=== PATIENT | female | born 1990 | race African-American/Black ===

== ENCOUNTER 2017-05-26 14:24 | Emergency (ER) | payer MEDICAID, OTHER ==
[~2017-05-26] VITALS: Ht 160 cm; Wt 118.0 kg
[~2017-05-26 14:24] MED LIST: PREN-88
[2017-05-26] MEDS ORDERED: METHYLPREDNISOLONE SOD SUCC 125 MG/2 ML VIAL IV STA (18:08)
[2017-05-26] MEDS ORDERED: AZITHROMYCIN 500 MG TABLET PO ONE (18:15)
[2017-05-26] MEDS ORDERED: IPRATROPIUM/ALBUTEROL 0.5-3(2.5)MG/3ML NEB HHN ONE (18:15)
[2017-05-26] MEDS ORDERED: IBUPROFEN 800MG TABLET PO ONE (18:15)
[2017-05-26 19:07] LABS: EOSINOPHILS % 1.7 % (0.0-5.0); LYMPHOCYTES % 31.1 % (20.0-50.0); MEAN CORPUSCULAR HEMOGLOBIN 20.9 pg (28.0-32.0); MEAN CORPUSCULAR VOLUME 66.2 fL (81.0-99.0); MEAN PLATELET VOLUME 8.7 fl (7.4-10.4); MONOCYTES % 7.6 % (2.0-8.0); NEUTROPHILS % 58.6 % (40.0-76.0); PLATELET 331 x1000/uL (130-400); RED BLOOD CELL COUNT 5.28 mill/uL (4.2-5.4); RED CELL DISTRIBUTION WIDTH 15.9 % (11.6-14.6)
[2017-05-26 19:11] LABS: CHLORIDE 105 mEq/L (98-107)
[2017-05-26 19:17] LABS: CARBON DIOXIDE 27 mEq/L (21-32)
[2017-05-26 19:19] LABS: HCG SCREEN NEGATIVE
[2017-05-26 19:20] LABS: D-DIMER 0.44 mg/L FEU (<0.50); PARTIAL THROMBOPLASTIN TIME 28.9 sec (23.4-31.0); PROTHROMBIN TIME 10.1 sec (9.4-11.6)
[2017-05-26 19:21] LABS: CREATINE KINASE 179 IU/L (26-192); TROPONIN I < 0.02 ng/mL (0.00-0.04)
[2017-05-26 20:01] LABS: PLATELET ESTIMATE NORMAL
[2017-05-26] MEDS ORDERED: FAMOTIDINE 20MG TABLET PO ONE (20:30)
[2017-05-26] MEDS ORDERED: MAGNESIUM/ALUMINUM HYDROXIDE/SIMETHICONE 30ML UDC PO ONE (20:30)
[2017-05-26 21:10] VITALS: BP 126/65
== END 2017-05-26 21:20 | disposition home or self-care (01) ==
LOC: ER 15:14
DX: J45.909 Unspecified asthma, uncomplicated (principal)
CPT/HCPCS: 36415; 71010; 80053; 82550; 83690; 83880; 84443; 84484; 84703; 85025; 85379; 85610; 85730; 93005; 96374; 99285; J2930; Z7610

== ENCOUNTER 2018-02-10 13:01 | Observation (INO) | payer MEDICAID, OTHER ==
[~2018-02-10] VITALS: Ht 160 cm; Wt 123.8 kg
[2018-02-10] MEDS ORDERED: PNV1TABL76 PO (14:10)
[2018-02-10] MEDS ORDERED: ACETAMINOPHEN 500MG TABLET PO SCH (14:15)
== END 2018-02-10 14:40 | disposition home or self-care (01) ==
LOC: ER 13:20 → L&D 13:22
PROVIDERS: ADMIT Obstetrics & Gynecology; ATTEND Obstetrics & Gynecology
DX: O26.893 Other specified pregnancy related conditions, third trimester (principal); R10.9 Unspecified abdominal pain; Z3A.35 35 weeks gestation of pregnancy
CPT/HCPCS: 99281; G0378

== ENCOUNTER 2022-10-07 16:45 | Emergency (ER) | payer MEDICAID, OTHER ==
[~2022-10-07] VITALS: Ht 160 cm; Wt 124.0 kg
[~2022-10-07 16:45] MED LIST changes: +PNV1TABL76 PO; -PREN-88
[2022-10-07 16:49] VITALS: BP 134/88
[2022-10-07 20:39] LABS: BASOPHILS % 1.1 % (0.0-2.0); EOSINOPHILS % 1.1 % (0.0-5.0); HEMATOCRIT. 33.1 % (36.0-48.0); HEMOGLOBIN. 10.4 g/dL (12.0-16.0); LYMPHOCYTES % 41.4 % (20.0-50.0); MEAN CORPUSCULAR HEMOGLOBIN 21.2 pg (28.0-32.0); MEAN CORPUSCULAR VOLUME 67.4 fL (81.0-99.0); MEAN PLATELET VOLUME 8.1 fl (7.4-10.4); MONOCYTES % 8.1 % (2.0-8.0); NEUTROPHILS % 48.3 % (40.0-76.0); PLATELET 334 x1000/uL (130-400); RED BLOOD CELL COUNT 4.91 mill/uL (4.2-5.4); RED CELL DISTRIBUTION WIDTH 16.9 % (11.6-14.6)
[2022-10-07 20:47] LABS: INR 0.9
[2022-10-07 20:54] LABS: HCG SCREEN NEGATIVE
[2022-10-07 20:56] LABS: CHLORIDE 106 mEq/L (98-107)
[2022-10-07 21:14] LABS: PLATELET ESTIMATE NORMAL
[2022-10-07 22:34] LABS: CLARITY URINE CLOUDY (CLEAR); COLOR URINE YELLOW (YELLOW); KETONES URINE TRACE (NEGATIVE); LEUKOCYTE ESTERASE URINE NEGATIVE (NEGATIVE); NITRITE URINE NEGATIVE (NEGATIVE); OCCULT BLOOD URINE NEGATIVE (NEGATIVE); PH URINE 8.5 (4.5-8.0); PROTEIN URINE 1+ (NEGATIVE); SPECIFIC GRAVITY URINE 1.034 (1.005-1.030)
== END 2022-10-07 22:25 | disposition home or self-care (01) ==
LOC: ER 16:45
DX: R19.00 Intra-abdominal and pelvic swelling, mass and lump, unspecified site (principal); J45.909 Unspecified asthma, uncomplicated
CPT/HCPCS: 36415; 74176; 76830; 76856; 80053; 81003; 81025; 84703; 85025; 99285